=== PATIENT | male | born 2005 | race Caucasian/White ===

== ENCOUNTER 2023-09-20 22:17 | Emergency (ER) | payer OTHER, SELFPAY ==
[~2023-09-20] VITALS: Ht 190.5 cm; Wt 78.9 kg
[2023-09-20] MEDS ORDERED: vit d (22:31)
[2023-09-20 23:30] LABS: ALBUMIN 4.1 G/DL (3.2-5.2); ALKALINE PHOSPHATASE 132 U/L (46-116); ALT/SGPT 29 U/L (7.0-40); AST/SGOT 11 U/L (<34); BILIRUBIN,DIRECT 0.3 MG/DL (<0.4); BILIRUBIN,TOTAL 0.9 MG/DL (0.3-1.2); BLOOD UREA NITROGEN 17 MG/DL (9-23); CALCIUM LEVEL 9.7 MG/DL (8.5-10.1); CARBON DIOXIDE LEVEL 30 MMOL/L (20-31); CHLORIDE LEVEL 104 MMOL/L (98-107); CREATININE FOR GFR 0.84 MG/DL (0.70-1.30); GLUCOSE, FASTING 88 MG/DL (60-100); POTASSIUM SERUM 4.2 MMOL/L (3.5-5.1); SODIUM LEVEL 139 MMOL/L (136-145)
[2023-09-20 23:32] LABS: CPK CREATINE PHOSPHOKINASE 149 U/L (46-171)
[2023-09-21 00:40] VITALS: BP 127/75; TEMP 97.5; O2SAT 99
== END 2023-09-21 02:42 | disposition home or self-care (01) ==
LOC: M ED 22:17
DX: R79.9 Abnormal finding of blood chemistry, unspecified (principal)